=== PATIENT | male | born 1980 | race Caucasian/White ===

== ENCOUNTER 2016-10-16 16:27 | Emergency (ER) | payer OTHER ==
[~2016-10-16] VITALS: Ht 182.9 cm; Wt 96.8 kg
[2016-10-16 16:33] VITALS: TEMP 38.8; Ht 182.9 cm; Wt 96.8 kg
[2016-10-16] MEDS ORDERED: IBUPROFEN 600 MG TAB PO STA (16:48)
[2016-10-16] MEDS ORDERED: CETI10TA84 PO (16:49)
[2016-10-16] MEDS ORDERED: SODIUM CHLORIDE 0.9% 1000ML 1,000 ML IV STA (16:56)
--- NOTE | 2016-10-16 17:11 | EMERGENCY ROOM VISIT NOTE ---
History First contact with patient: 16:37 Chief Complaint: ILLNESS Stated Complaint: FEVER,SORE THROAT History of Present Illness The patient is a 36 year old male who presents to the Emergency Room via private vehicle coming by with complaints of "fever, sore throat". The patient notes that he does not speak Romanian her well, and has lost his voice therefore he would like his to translate and speak for him. She provides most history. The patient states that on he began with cold symptoms, to include dizziness, weakness and fever. He also has generalized body aches. He states that his son does have similar symptoms, but only a sore throat. Patient states that he now has a sore throat, and has lost his voice. They have taken the temperature at home and was noted to be 38.8. He did not receive his flu shot this year. He has tried DayQuil and NyQuil without relief. He has not tried ibuprofen. He denies any abdominal pain, diarrhea, nausea, vomiting, chest pain, shortness of breath. He denies any medicinal allergies. Review of Systems A complete 10-point Review of Systems was discussed with the patient, with pertinent positives and negatives listed in the History of Present Illness. All remaining Review of Systems questions can be considered negative unless otherwise specified. Past Medical/Surgical History Medical Problems: (1) No Known Active Medical Problems Family History Diabetes Social History Smoking Status: Never Smoker Alcohol Use: none Drug Use: none Marital Status: Housing Status: lives with family Occupation Status: employed Current/Historical Medications Scheduled Cetirizine (Zyrtec), 10 MG PO DAILY Allergies Coded Allergies: No Known Allergies (Unverified , NONE, 01/10/16) Physical Exam Vital Signs Date Time Temp Pulse Resp B/P Pulse Ox O2 Delivery O2 Flow Rate FiO2 10/16/16 18:57 94 16 125/74 97 10/16/16 17:56 94 16 121/72 94 Room Air 10/16/16 16:33 38.8 115 18 116/75 95 Room Air Physical Exam VITAL SIGNS - Vital signs and nursing notes were reviewed. Patient is febrile at 38.8, normotensive, slightly tachycardic at a rate of 150 bpm, and is saturating well on room air 95%. GENERAL -36-year-old male appearing his stated age who is in no acute distress. Communicates nonverbally, the patient does appear to have lost his voice. Well with provider and answers questions appropriately. SKIN - Without rashes. HEAD - NC/AT. EYES - PERRL with EOMI bilaterally. Sclera anicteric. Palpebral conjunctiva pink and moist with no injection noted. EARS - No deformities of external structures noted on gross examination bilaterally. No pain elicited with palpation of the tragus bilaterally. External auditory canals without discharge or otorrhea. Tympanic membranes pearly roque without retraction or bulging. No fluid or purulent material visualized behind the TM. Handle of malleus, umbo, cone of light, pars tensa/ flaccid all easily visualized. NOSE - Midline and without cyanosis. No epistaxis or purulent drainage noted. Septum midline without deviation or septal hematoma noted. MOUTH/OROPHARYNX - Without perioral cyanosis. Buccal mucosa pink and moist and without leukoplakia. Tongue midline with equal elevation of palate bilaterally. No tonsillar hypertrophy or exudates noted. The pharynx is erythematous. Fair dentition noted. NECK - Neck with FROM. Supple to palpation. Bilateral anterior cervical lymphadenopathy noted. No nuchal rigidity. No sign of meningitis or encephalitis. LUNGS - Chest wall symmetric without accessory muscle use, intercostals retractions, or central cyanosis. Normal vesicular breath sounds CTA B/L. No wheezes, rales, or rhonchi appreciated. CARDIAC - RRR with S1/S2. No murmur, rubs, or gallops appreciated. ABDOMEN - Abdominal contour without pulsations or visible masses. BS normoactive all four quadrants. No tenderness, palpable masses, hepatosplenomegaly, or ascites noted. EXTREMITIES - No clubbing or peripheral cyanosis. No pretibial edema present. +5 /5 strength noted in UE/LE bilaterally. NEUROLOGIC - Cranial nerves II through XII grossly intact. Sensory intact to light touch throughout. . PSYCH - Pt is very pleasant and interacts well with examiner. Medical Decision & Procedures ER Provider Diagnostic Interpretation: CHEST 2 VIEWS ROUTINE CLINICAL HISTORY: Fever, sore throat, cough COMPARISON STUDY: 03/27/2014 FINDINGS: The cardiac and mediastinal contours are normal. There is no evidence of focal pulmonary consolidation. There is no evidence of failure. No pleural effusions are visualized.[ Minimally prominent left basal markings are likely atelectatic. IMPRESSION: No active disease in the chest. Electronically signed by: Alvin Olivarez M.D. 10/16/2016 6:02 PM Dictated Date/Time: 10/16/2016 6:01 PM Laboratory Results 10/16/16 17:11 Red Blood Count 4.99, Mean Corpuscular Volume 87.2, Mean Corpuscular Hemoglobin 31.3, Mean Corpuscular Hemoglobin Concent 35.9, Mean Platelet Volume 9.9, Neutrophils (%) (Auto) 62.7, Lymphocytes (%) (Auto) 24.7, Monocytes (%) (Auto) 11.3, Eosinophils (%) (Auto) 0.7, Basophils (%) (Auto) 0.3, Neutrophils # (Auto ) 1.88, Lymphocytes # (Auto) 0.74, Monocytes # (Auto) 0.34, Eosinophils # (Auto ) 0.02, Basophils # (Auto) 0.01 10/16/16 17:11 Test 10/16/16 17:11 10/16/16 17:40 White Blood Count 3.00 K/uL (4.8-10.8) Red Blood Count 4.99 M/uL (4.7-6.1) Hemoglobin 15.6 g/dL (14.0-18.0) Hematocrit 43.5 % (42-52) Mean Corpuscular Volume 87.2 fL (80-100) Mean Corpuscular Hemoglobin 31.3 pg (25-34) Mean Corpuscular Hemoglobin Concent 35.9 g/dl (32-36) Platelet Count 125 K/uL (130-400) Mean Platelet Volume 9.9 fL (7.4-10.4) Neutrophils (%) (Auto) 62.7 % Lymphocytes (%) (Auto) 24.7 % Monocytes (%) (Auto) 11.3 % Eosinophils (%) (Auto) 0.7 % Basophils (%) (Auto) 0.3 % Neutrophils # (Auto) 1.88 K/uL (1.4-6.5) Lymphocytes # (Auto) 0.74 K/uL (1.2-3.4) Monocytes # (Auto) 0.34 K/uL (0.11-0.59) Eosinophils # (Auto) 0.02 K/uL (0-0.5) Basophils # (Auto) 0.01 K/uL (0-0.2) RDW Standard Deviation 39.1 fL (36.4-46.3) RDW Coefficient of Variation 12.2 % (11.5-14.5) Immature Granulocyte % (Auto) 0.3 % Immature Granulocyte # (Auto) 0.01 K/uL (0.00-0.02) Anion Gap 10.0 mmol/L (3-11) Est Creatinine Clear Calc Drug Dose 113.1 ml/min Estimated GFR () 100.3 Estimated GFR (Non- 86.5 BUN/Creatinine Ratio 11.4 (10-20) Calcium Level 8.0 mg/dl (8.5-10.1) Monoscreen NEG (NEG) Influenza Type A Antigen Neg for Influ A (NEG) Influenza Type B Antigen POS for Influ B (NEG) Medications Administered Medications (Trade) Dose Ordered Sig/Santa Route Start Time Stop Time Status Last Admin Dose Admin Sodium Chloride (Nss 1000ml) 1,000 ml @ 999 mls/hr Q1H1M STAT IV 10/16/16 16:56 10/16/16 17:56 DC 10/16/16 17:15 999 MLS/HR Ketorolac Tromethamine (Toradol Inj) 30 mg NOW STAT IV 10/16/16 17:14 10/16/16 17:15 DC 10/16/16 17:30 30 MG Medical Decision Patient was seen and evaluated as above. After obtaining a thorough history and physical examination was evident the patient was presenting with what was likely a viral illness, however rapid strep was obtained. This 70 negative. Because the patient was febrile at 38.8, and was tachycardic and clinically appear to be slightly ill I did elect to establish IV access and performed the above workup. For his pain, he was given 30 mg of IV Toradol. Blood cultures were also obtained secondary to his temperature and tachycardia. He was hydrated with liter of normal saline. His white blood cell count was found to be low at 3, platelet count was also low at 125. I suspect that the low white blood cell count is likely secondary to viral illness which was supported by the positive influenza B swab. PRP revealed low calcium at 8.0. Again serology notes negative mono screen, but positive for influenza B. Patient did not receive his flu vaccine this year. It is important he is also accompanied by his son with a similar ailment. The patient after being hydrated and provided Toradol was feeling better. X-ray reveals no pneumonia. He was educated upon today's findings, and instructed to follow-up with his family doctor regarding today's visit for repeat basic lab work to include the white blood cell count platelet count and calcium. I do not suspect any other injury or ailment at this time and believe he is able to be discharged with outpatient follow-up. I do not suspect sepsis at this time. They were educated upon today 's findings, had questions answered prior to discharge, and was discharged home in good condition. In the evaluation and treatment of this patient the following differential diagnoses were entertained: Sepsis, SIRS, influenza, or viral pharyngitis, viral laryngitis, pneumonia, strep throat, among others. Impression Primary Impression: Influenza B Additional Impressions: Hypocalcemia low white blood cell count Departure Information Dispostion Home / Self-Care Condition GOOD Referrals RV. Sanon MD (PCP) Patient Instructions My [facility] Additional Instructions You were seen in the emergency Department for the flu. You were found to be flu positive. You were seen in the emergency department for your sore throat. The results of your rapid strep screen were found to be NEGATIVE You will be contacted in 48- 72 hrs if the results of your culture are found to be positive and any change in antibiotics is necessary. For pain and fever control, you can use the following diqu-oes-pafklbq medicines (if >12 yo): - Regular strength (325mg/tab) Tylenol (acetaminophen) 2 tabs every 4-6 hours as needed. Do not exceed 12 tablets in a 24 hour period. Avoid taking more than 4 grams (4000 mg) of Tylenol per day. This includes any other sources of acetaminophen you may take on a regular basis. - Regular strength (200 mg/tab) Advil (ibuprofen) 1-2 tabs every 4-6 hours as needed. Do not exceed a dose of 3200 mg per day. - For best results, alternate dosing of Tylenol and Advil. In addition to your prescribed medications, you can also use the following home remedies: - Warm salt-water gargles 3 times per day can soothe your throat and help to fight infection. - Warm tea with honey can soothe your throat. Please drink plenty of fluids, to include water and Gatorade. Please eat a healthy and well balanced diet. Please Follow-Up with your Family Doctor regarding Today's Visit. Please have basic labs repeated to recheck your white blood cell count, platelet count and calcium. Return to the emergency department if your symptoms persist or worsen over the next 2-3 days despite treatment course outlined above. Return to the emergency department if you develop the following symptoms of: inability to swallow solids , liquids, or drool; excessive wheezing or inability to catch your breath; or intractable fever or pain. Follow up with your primary care provider in 2-3 days from today's emergency department visit. Please return to the emergency department with any new/concerning symptoms. Problem Qualifiers
[2016-10-16] MEDS ORDERED: KETOROLAC TROMETHAMINE 30 MG/ML VIAL IV STA (17:14)
[2016-10-16 17:32] LABS: BASO % 0.3 %; BASO ABS # 0.01 K/uL (0-0.2); COMPLETE YES; EOS % 0.7 %; HEMATOCRIT 43.5 % (42-52); IG% 0.3 %; LYMPH % 24.7 %; LYMPH ABS # 0.74 K/uL (1.2-3.4); MEAN CELL VOLUME 87.2 fL (80-100); MEAN CORPUSCULAR HEMOGLOBIN 31.3 pg (25-34); MEAN CORPUSCULAR HGB CONC 35.9 g/dl (32-36); MEAN PLATELET VOLUME 9.9 fL (7.4-10.4); MONO % 11.3 %; NEUT % 62.7 %; PLATELET COUNT 125 K/uL (130-400); RED BLOOD COUNT 4.99 M/uL (4.7-6.1)
[2016-10-16 18:01] LABS: BUN/CREATININE RATIO 11.4 (10-20); CREATININE 1.1 mg/dl (0.60-1.40); POTASSIUM 3.8 mmol/L (3.5-5.1)
--- NOTE | 2016-10-16 18:03 | DIAGNOSTIC IMAGING REPORT ---
CHEST 2 VIEWS ROUTINE CLINICAL HISTORY: Fever, sore throat, cough COMPARISON STUDY: 03/27/2014 FINDINGS: The cardiac and mediastinal contours are normal. There is no evidence of focal pulmonary consolidation. There is no evidence of failure. No pleural effusions are visualized.[ Minimally prominent left basal markings are likely atelectatic. IMPRESSION: No active disease in the chest. Electronically signed by: Alvin Olivarez M.D. 10/16/2016 6:02 PM Dictated Date/Time: 10/16/2016 6:01 PM
[2016-10-16 18:57] VITALS: BP 125/74; PULSE 94; O2SAT 97
== END 2016-10-16 18:59 | disposition home or self-care (01) ==
LOC: C.EDB 16:29 → C.EDC 18:59
DX: J11.1 Influenza due to unidentified influenza virus with other respiratory manifestations (principal); E83.51 Hypocalcemia; D72.819 Decreased white blood cell count, unspecified; Z83.3 Family history of diabetes mellitus